=== PATIENT | female | born 1980 | race Caucasian/White ===

== ENCOUNTER → 2016-05-29 | Outpatient (CLI) | payer BC, OTHER ==
[2016-05-29 18:14] LABS: THYROID STIMULATING HORMONE 0.694 uIu/ml (0.300-4.500)
== END | disposition home or self-care (01) ==
LOC: C.LABMFLN 14:05
PROVIDERS: ATTEND Internal Medicine Endocrinology, Diabetes & Metabolism
DX: R53.83 Other fatigue (principal); E06.3 Autoimmune thyroiditis

== ENCOUNTER 2017-10-04 12:27 | Emergency (ER) | payer OTHER ==
[~2017-10-04] VITALS: Ht 165.1 cm; Wt 98.0 kg
[2017-10-04 12:29] VITALS: TEMP 36.7; Ht 165.1 cm; Wt 98.0 kg
--- NOTE | 2017-10-04 12:48 | EMERGENCY ROOM VISIT NOTE ---
History Report prepared by Noahibdarion: Jimena Rae Under the Supervision of: Dr. Ricky Brandt M.D. First contact with patient: 12:30 Chief Complaint: CHEST PAIN Stated Complaint: CHEST PAIN, RADIATING TO RT SIDE History of Present Illness The patient is a 37 year old female who presents to the Emergency Room with complaints of constant chest pain that onset 3 days ago during the evening. She notes that she went out to eat with her children and when she returned, she took vitamin D and biotin supplements. She states that it felt like the pills got stuck in her throat. She notes that when she eats, drinks, or belches there is a stabbing pain in in center of her chest. She states that the area has been constantly aching when she is not swallowing. The patient notes that she called her PCP who referred her to the ED. She notes that the pain radiates into her right side. The patient states that the pain worsens with swallowing. No shortness of breath. Source of History: patient Onset: 3 days ago in the evening Position: chest (center) Quality: ache, stabbing Timing: constant Modifying Factors (Worsening): eating, drinking, other (swallowing) Note: The patient complains of right flank pain. Review of Systems See HPI for pertinent positives and negatives. A total of ten systems were reviewed and were otherwise negative. Family History Patient reports no known family medical history. Social History Smoking Status: Never Smoker Current/Historical Medications Scheduled Liothyronine Sodium (Liothyronine Sodium), 3 TAB PO DAILY Pantoprazole (Protonix), 20 MG PO DAILY Thyroid ([place] Thyroid), 1 TAB PO DAILY Allergies Coded Allergies: No Known Allergies (Unverified , 10/04/17) Physical Exam Vital Signs Date Time Temp Pulse Resp B/P (MAP) Pulse Ox O2 Delivery O2 Flow Rate FiO2 10/04/17 14:50 90 18 121/80 97 10/04/17 12:29 36.7 78 20 143/86 98 Room Air Physical Exam Physical Exam GENERAL: She is oriented to person, place, and time. She appears well- developed and well-nourished. She does not appear distressed. HENT: Exam performed. Head: Normocephalic and atraumatic. Right Ear: External ear normal. No mastoid tenderness. Left Ear: External ear normal. No mastoid tenderness. Mouth/Throat: The oropharynx is clear and moist. No trismus in the jaw. No dental abscesses or uvula swelling. No oropharyngeal exudate or tonsillar abscesses. EYES: Conjunctivae and EOM are normal. Pupils are equal, round, and reactive to light. Right eye exhibits no discharge. Left eye exhibits no discharge. No scleral icterus. NECK: Normal range of motion. Neck supple. No JVD present. No spinous process tenderness present. No carotid bruit present. No rigidity. No tracheal deviation and normal range of motion present. No Brudzinski's sign and no Kernig 's sign noted. CV: Normal rate, regular rhythm, normal heart sounds and intact distal pulses. There is no peripheral edema. Palpable radial pulses bue. PULM/CHEST: Effort normal and breath sounds normal. No respiratory distress. No stridor. She has no wheezes. She has no rales. Chest Wall: She exhibits no tenderness. ABD: The abdomen is soft. Bowel sounds are normal. She has no distension. No mass is present. There is no tenderness. There is no rebound, no guarding, no Marroquin's sign and no tenderness at McBurney's point. Rovsig negative MUSC/SKEL: Normal range of motion. There is no peripheral edema, tenderness or deformity. LYMPH: No cervical adenopathy. NEURO: She is alert and oriented to person, place, and time. She has normal strength. No cranial nerve deficit or sensory deficit. Coordination and gait normal. GCS eye subscore is 4. GCS verbal subscore is 5. GCS motor subscore is 6. Cerebellar tests wnl. SKIN: Skin is warm and dry. She is not diaphoretic. PSYCH: She has a normal mood and affect. Behavior is normal. Judgment and thought content normal. Medical Decision & Procedures ER Provider Diagnostic Interpretation: Radiology results as stated below per my review and radiologist interpretation: CHEST 2 VIEWS ROUTINE CLINICAL HISTORY: Chest pain when swallowing. COMPARISON STUDY: No previous studies for comparison. FINDINGS: The cardiac and mediastinal contours are normal. There is no evidence of focal pulmonary consolidation. There is no evidence of failure. No pleural effusions are visualized.[Incidental note is made of an azygos fissure. No pneumomediastinum is visualized. IMPRESSION: No active disease in the chest. Electronically signed by: Juan Luis Azevedo M.D. 10/04/2017 1:04 PM Dictated Date/Time: 10/04/2017 1:04 PM Medications Administered Medications (Trade) Dose Ordered Sig/Todd Route Start Time Stop Time Status Last Admin Dose Admin Lidocaine HCl (Viscous Lidocaine 2% Soln) 20 ml STK-MED ONCE .ROUTE 10/04/17 13:11 10/04/17 13:12 DC 10/04/17 13:20 20 ML Al Hydroxide/Mg Hydroxide (Maalox Susp) 30 ml STK-MED ONCE .ROUTE 10/04/17 13:12 10/04/17 13:13 DC 10/04/17 13:19 30 ML ECG Per My Interpretation Indication: chest pain Rate (beats per minute): 75 Rhythm: sinus rhythm Findings: 1st degree AV block, other (AK interval 202. QRS and QTC intervats within normal limits. No ST segment elevation or depression. ) ED Course 1233: The patient was evaluated in room C7. A complete history and physical exam was performed. 1307: Ordered Gi Cocktail 24 ml PO. 1400: Vital signs are stable, PE within normal limits, EKG and imaging within normal limits. The patient states that she is feeling better after receiving Gi Cocktail. Patient will be discharged with follow up with GI. She has a scheduled cholecystectomy and endoscopy on . DISCHARGE - Plan of care discussed with patient and questions answered. The patient was given both verbal and printed discharge instructions. The patient verbalized understanding and ability to comply. The patient is to seek outpatient follow up as noted in the discharge instructions. The patient verbalized understanding and ability to comply. The patient is discharged in stable condition. The patient was instructed to return for worsening symptoms. Medical Decision Vital signs are stable, PE within normal limits, EKG and imaging within normal limits. The patient states that she is feeling better after receiving Gi Cocktail. Patient will be discharged with follow up with GI. She has a scheduled cholecystectomy and endoscopy on . DISCHARGE - Plan of care discussed with patient and questions answered. The patient was given both verbal and printed discharge instructions. The patient verbalized understanding and ability to comply. The patient is to seek outpatient follow up as noted in the discharge instructions. The patient verbalized understanding and ability to comply. The patient is discharged in stable condition. The patient was instructed to return for worsening symptoms. Medication Reconcilliation Current Medication List: was personally reviewed by me Blood Pressure Screening Patient's blood pressure: Normal blood pressure Impression Primary Impression: Pill esophagitis Scribe Attestation The scribe's documentation has been prepared under my direction and personally reviewed by me in its entirety. I confirm that the note above accurately reflects all work, treatment, procedures, and medical decision making performed by me. The chart was completed utilizing [employer] voice recognition software. Grammatical errors, random word insertions, pronoun errors, and incomplete sentences are an occasional consequence of this system due to software limitations, ambient noise, and hardware issues. Any formal questions or concerns about the content, text, or information contained within the body of this dictation should be directly addressed to the physician for clarification. Departure Information Dispostion Home / Self-Care Prescriptions Pantoprazole (Protonix) 20 Mg Tab 20 MG PO DAILY, #30 TAB Prov: Ricky Brandt M.D. 10/04/17 Referrals No Doctor, Assigned (PCP) Forms Call Back Authorization, HOME CARE DOCUMENTATION FORM, IMPORTANT VISIT INFORMATION Patient Instructions My [facility] Additional Instructions Follow-up for your regular scheduled endoscopy and colonoscopy with GI Dr. Harrison on . Return to the emergency department if you develop fever greater 100.4, chest pressure, difficulty breathing, vomiting blood, blood in your stool, blood in your urine.
[2017-10-04] MEDS ORDERED: THY/30 PO (12:58)
[2017-10-04] MEDS ORDERED: LIOT5TAB9 PO (12:58)
[2017-10-04] MEDS ORDERED: GI COCKTAIL PO STA (13:06)
--- NOTE | 2017-10-04 13:06 | DIAGNOSTIC IMAGING REPORT ---
CHEST 2 VIEWS ROUTINE CLINICAL HISTORY: Chest pain when swallowing. COMPARISON STUDY: No previous studies for comparison. FINDINGS: The cardiac and mediastinal contours are normal. There is no evidence of focal pulmonary consolidation. There is no evidence of failure. No pleural effusions are visualized.[Incidental note is made of an azygos fissure. No pneumomediastinum is visualized. IMPRESSION: No active disease in the chest. Electronically signed by: Juan Luis Azevedo M.D. 10/04/2017 1:04 PM Dictated Date/Time: 10/04/2017 1:04 PM
[2017-10-04] MEDS ORDERED: LIDOCAINE HCL 2% VISC SOLN 20 ML UDC ONE (13:11)
[2017-10-04] MEDS ORDERED: ALUMINUM/MAGNESIUM SUSP 30 ML UDC ONE (13:12)
[2017-10-04] MEDS ORDERED: PRT/20 PO (13:40)
[2017-10-04 14:50] VITALS: BP 121/80; PULSE 90; O2SAT 97
== END 2017-10-04 14:51 | disposition home or self-care (01) ==
LOC: C.EDB 12:27 → C.EDC 14:51
DX: K20.9 Esophagitis, unspecified (principal)

== ENCOUNTER 2020-05-03 07:13 | Inpatient (IN) ==
[~2020-05-03 07:13] MED LIST: ceFAZolin 2000MG 2,000 MG/15 ML SYR IV SCH
[2020-05-03] MEDS ORDERED: PENICILLIN G POTASSIUM 3 MU in DEXTROSE 5% 100 ML IV PRN (07:51)
--- NOTE | 2020-05-03 08:01 | Labor Progress Brief Note ---
Date of Service May 03, 2020 Subjective Patient presents from home with c/o painful contractions. No LOF, no VB, good FM. Did not call prior to arriving. Arrives as one MD is leaving post-shift and I am arriving, receiving sign out, and was checked by RN before I entered her room. Assessment & Plan (1) GBS (group B Streptococcus carrier), +RV culture, currently : Patient refuses intrapartum antibiotic prophylaxis despite counseling. (2) Gestational diabetes mellitus (GDM) affecting , antepartum: Has been on metformin due to possible adverse reaction to insulin. Will check FSBG now and prn; labor progressing rapidly, role for IV insulin and glucose infusions likely to be very limited. (3) Normal labor and delivery: Patient desires expectant management and no epidural. Admission and Anticipated Discharge Date Admission Date: May 03, 2020 Physical Exam Physical Exam: 3-480/-1 per RN Patient c/o ?leakage after exam. This appears more likely to be lubricant from exam, but she agrees to MD re-exam to check. My exam is 6/100/0 with bulging intact bag. FHT cat 1, though maternal HR is traced frequently as patient sits up and/or stands due to managing her pain via changing positions. This causes the FHT strip to appear to show areas of decreased FHT baseline, however these are clearly r/t maternal positioning based on my observation in her room. [place] not well traced due to frequent maternal repositioning, however clinically based on her pain episodes, appears to be roughly Q3m. Results & Data ([facility]) Vital Signs (Past 12 Hours) Vital Signs Pulse BP 05/03/20 07:20 108 H 131/81 Coding Level of Care Code None Diagnoses GBS (group B Streptococcus carrier), +RV culture, currently O99.820 Gestational diabetes mellitus (GDM) affecting , antepartum O24.419 Normal labor and delivery O80
[2020-05-03] MEDS ORDERED: PENICILLIN G POTASSIUM 6 MU in DEXTROSE 5% 250 ML IV STA (08:04)
[2020-05-03] MEDS ORDERED: LACTATED RINGER'S 1,000 ML IV PRN (08:05)
[2020-05-03 08:10] LABS: Hematocrit (blood only) 40.8 % (37-47); Hemoglobin 14.1 g/dL (12.0-16.0); Mean Corpuscular Hemoglobin 29.6 pg (25-34); Mean Corpuscular Hgb Conc 34.6 g/dL (32-36); Mean Corpuscular Volume 85.5 fL (80-100); Mean Platelet Volume 11.8 fL (7.4-10.4); Platelet Count 184 K/uL (130-400); RDW Coefficient of Variation 14.6 % (11.5-14.5); RDW Standard Deviation 45.5 fL (36.4-46.3); Red Blood Count 4.77 M/uL (4.2-5.4); White Blood Count 8.84 K/uL (4.8-10.8)
[2020-05-03] MEDS ORDERED: SODIUM CHLORIDE 0.9% 250 ML IV PRN (08:51)
[2020-05-03] MEDS ORDERED: ACETAMINOPHEN 325 MG TAB PO ONE (09:46)
[2020-05-03] MEDS ORDERED: ACETAMINOPHEN 325 MG TAB ONE (09:47)
[2020-05-03] MEDS: OXYTOCIN 30 UNITS/500 ML BAG IV PRN ×3 (09:49→14:15)
--- NOTE | 2020-05-03 10:04 | Delivery Summary ---
Vaginal Delivery Summary Date of Service May 03, 2020 Vaginal Delivery Summary DIAGNOSES: 1. Ambrose intrauterine at 37w4d gestation. 2. Spontaneous onset of labor. 3. Group B Streptococcus Positive, patient refuses antibiotic therapy. PROCEDURE: Spontaneous vaginal delivery in squatting postion, without laceration. SURGEON: Justine Crowell MD. ENERGY CONTROL OFFICER: None. ESTIMATED BLOOD LOSS: 250 mL. COMPLICATIONS: None. PLACENTA: Spontaneous and intact with a 3-vessel cord. DISPOSITION: Stable to labor and delivery. DESCRIPTION: The patient initially was unable to push effectively in lithotomy, but requested to move into a more upright position which was facilitated with a squatting bar and nursing support. She pushed well in squatting position and brought the head to in OA position with a single contraction. The infant's head was allowed to deliver with contraction force and no further active pushing, with the perineum protected during this time. The shoulders delivered easily with a maternal pushing effort. There was a tight nuchal cord reduced while the head was at the perineum. The was placed on the maternal abdomen where two nurses provided suction and stimulation as the baby did not immediately make respiratory effort. The patient was advised that the cord was becoming slack and asked for permission to clamp and cut it, which she did not sim. Infant resuscitation proceeded with baby on mom's abdomen for another minute or so before the nurses reiterated their concerns that the baby needed its cord clamped and cut so that further resuscitation could proceed at the warmer. Patient agreed at this time. The cord was doubly clamped by the MD and then cut by the FOB. The went to the warmer and blow-by oxygen was provided without the expected increase in oxygen saturations, so the parents were advised of the recommendation that the be taken to the nursery. The FOB accompanied the and nurse as they departed the delivery room. The placenta delivered spontaneously at nearly 20 minutes post-; note that the patient preferred spontaneous delivery without excessive maneuvers. She also requested to inspect the placenta and was shown the entire placenta with explanations of the findings. Several large segments on the maternal side were hard, white, and rubbery/calcified. I voiced my preference to have the placenta sent for pathology exam given these findings and the patient did agree. The placenta was noted to be intact and with a 3VC. The cervix, vagina and perineum were examined and were found to be without defect requiring repair. The fundus was firm and lochia minimal immediately after delivery. The patient initially refused pitocin drip but after counseling about her risks for hemorrhage she ultimately agreed to pitocin if it was used "at a low dose." We are currently infusing her dilute pitocin at 333cc/hr. [facility] Charge Vaginal Delivery Codes: 44365 global code for the antepartum, delivery, and post-
[2020-05-03] MEDS ORDERED: DIPHTHERIA/TETANUS/PERTUSSIS 0.5 ML SYR/VIAL IM ONE (10:05)
[2020-05-03] MEDS ORDERED: HYDROCORTISONE ACETATE 25 MG SUPP PR PRN (10:05)
[2020-05-03] MEDS ORDERED: SUPERCREAM 0.870% 15 GM JAR EXT PRN (10:05)
[2020-05-03] MEDS ORDERED: BENZOCAINE 20% AER SPR 82.5 GM CAN EXT PRN (10:05)
[2020-05-03] MEDS ORDERED: oxyCODONE/ACETAMINOPHEN 5mg/325mg TAB PO PRN (10:05)
--- NOTE | 2020-05-03 10:11 | History & Physical Report ---
Date of Service May 03, 2020 Assessment & Plan (1) Normal labor and delivery: Justine Banks is a 39yo who arrived with c/o of painful contractions. Admitted for labor. Labor - Per pt preference, underwent expectant management, no epidural - Labor progressed rapidly resulting in - Dilute Pitocin drip per patient request--had initially denied Pitocin drip but then agreed to low dose - Please refer to attending Vaginal Delivery Summary for more details - APAP, ibuprofen, Percocet prn GBS Carrier with +RV culture - Patient refused intrapartum antibiotic ppx despite cousneling GDM - Managed during by [facility] in [place] - On metformin due to possible adverse reaction to insulin - BSG checks prn Diet: Lactose-free, gluten-free Dispo: Admission to L&D CODE STATUS: Full (2) GBS (group B Streptococcus carrier), +RV culture, currently : (3) Gestational diabetes mellitus (GDM) affecting , antepartum: Admission and Anticipated Discharge Date Admission Date: May 03, 2020 History of Present Illness Primary Care Provider: CHANTELL Pastor Justine Banks is a 39 y/o female currently at 37.5 WGA as determined by LMP who arrived with c/o contractions and was found to be in labor. Her was complicated by advanced maternal age and GDM on metformin (managed by [facility]). + contractions; + movement; - fluid loss; - bloody show Had regular appointments with OB. Blood type: B+ Antibody screen: Negative Labs Rubella: Immune VDRL/RPR: Nonreactive Gonorrhea: Negative Chlamydia: Negative HIV: Negative HbSAg: Negative GBS: Positive 04/25/20 COVID-19 negative 05/03/20 Other screens: cff-DNA: Neg (see scanned documents) CF: Neg SMA: Neg Allergies Allergy/AdvReac Type Severity Reaction Status Date / Time insulin glargine Allergy SOB, Verified 05/02/20 11:32 [From Lantus U-100 Insulin] itching with no rash, swelling Wheat Allergy Unknown Uncoded 05/02/20 11:32 Dairy AdvReac Unknown Uncoded 05/02/20 11:32 fluoxetine AdvReac Unknown Uncoded 05/02/20 11:32 Home Medications Medication Instructions Recorded Confirmed Type metformin 500 mg tablet 500 mg PO BID 03/04/20 05/03/20 History chromium 1,000 mcg PO DAILY 05/03/20 05/03/20 History ferrous sulfate 325 mg PO DAILY 05/03/20 05/03/20 History prenat.vits,yeimi,rxu-ccjz-cphag 1 tab PO DAILY 05/03/20 05/03/20 History [ Vitamin] Patient History Medical History (Updated 05/03/20 @ 07:59 by Justine Crowell MD) Abdominal cyst Chronic abdominal pain History of anemia Hypothyroidism Surgical History S/P dilation and curettage S/P tonsillectomy S/P wisdom tooth extraction Family History (Updated 05/23/19 @ 09:11 by Travis Hanley MD) Mother Diabetes Heart disease Hypothyroidism Social History (Updated 03/04/20 @ 13:29 by Tatiana Vaughn) Smoking Status: Never smoker Hx Alcohol Use: No Hx Substance Use: No Preferred Language: Mongolian Communication Ability: Effective Beliefs That Will Affect Care: None marital status: marital status details: Quinn (45) [phone] Current Living Situation: Spouse Current Living Situation Comment: lives with spouse and children, no pets. current occupational status: unemployed current occupation: homemaker. Other Information That Helps Us Care for You: No Feels Safe at Home: Yes Safety Concerns: Feels Safe At This Time Review of Systems Denies fever or chills. Denies shortness of breath or cough Denies chest pain Denies breast pain Denies dysuria or hematuria Denies leg pain or leg swelling Denies headache or changes in vision Physical Exam Physical Exam: General: Alert, oriented. No acute distress. Cardiac: Regular rate and rhythm, no murmurs/rubs/gallops. Respiratory: Clear to auscultation bilaterally a/p, no wheezes/rales/rhonchi. No increased work of breathing. Symmetrical chest rise. No respiratory distress. Abdomen: Gravid. Vertex position. + heart tones. + contractions. EFW 77% (04/25/20) Pelvic: Dilation: 6, Effacement: 100%, Station: 0, per Dr. Crowell External FHT and external uterine monitors used; Category I tracing; variability diffuclt to assess 2/2 maternal repositioning/movement (please see attending Labor progress note). Lower Extremities: No lower extremity edema or swelling. No deep calf pain. Anne-Marie's negative bilaterally. Results & Data ([facility]) Vital Signs (Past 12 Hours) Vital Signs Temp Pulse Resp BP 05/03/20 09:57 70 122/79 05/03/20 09:45 78 131/84 05/03/20 09:15 83 132/95 05/03/20 08:14 64 148/68 H 05/03/20 08:08 62 132/75 05/03/20 08:05 82 93/55 L 05/03/20 07:33 36.5 C 20 05/03/20 07:20 108 H 131/81 Laboratory Results Labs on admission today H.1 Hct: 40.8 WBC: 8.84 Plt: 184 Code Status & VTE Plan VTE Prophylaxis Plan VTE Prophylaxis will be ordered: No Resident Activity Tracking Resident Involvement: Resident Care Provided Care Provided: OB Delivery
[2020-05-03] MEDS: IBUPROFEN 600 MG TAB PO PRN ×2 (11:08→20:29)
[2020-05-03] MEDS ORDERED: DOCUSATE SODIUM 100 MG CAP PO ONE (13:03)
[2020-05-03] MEDS ORDERED: ONDANSETRON INJ 2 MG/ML 2 ML VIAL ONE (14:39)
[2020-05-03] MEDS ORDERED: LIDOCAINE HCL 2% 2 ML VIAL/AMP(20MG/ML) INFIL ONE (14:39)
[2020-05-03] MEDS ORDERED: PROPOFOL IV EMULSION 10 MG/ML 20 ML VIAL IV ONE (14:39)
[2020-05-03] MEDS ORDERED: MIDAZOLAM HCL 1 MG/ML 2ML VIAL ONE (14:42)
[2020-05-03] MEDS ORDERED: fentaNYL citrate 100 MCG/2 ML VIAL ONE (14:42)
[2020-05-03] MEDS ORDERED: METHYLERGONOVINE MALEATE 0.2 MG/ML AMP ONE (14:45)
--- NOTE | 2020-05-03 14:47 | Anesthesiology Consultation ---
Date of Service May 03, 2020 Assessment & Plan (1) Encounter for pre-operative examination: Chart Review Chart Review: Acceptable Risk for Surgery and Patient NOT seen in Pre Admission Testing Consults Requested none ASA [id number] Proposed Anesthesia Anesthesia Type: General Risk / Benefits Reviewed With: PT / POA / Parent / Guardian, Accepts Plan and Informed Consent Obtained History Surgery Operation Date: 05/03/20 10:30 Proposed Procedures p S/P Vaginal Delivery, Exam Under Anesthesia, Dilation and Evacuation - Zay Jarquin MD, FACOG Height/Weight Height: 5 ft 5 in Weight: 106.141 kg Allergies Allergy/AdvReac Type Severity Reaction Status Date / Time insulin glargine Allergy SOB, Verified 05/02/20 11:32 [From Lantus U-100 Insulin] itching with no rash, swelling Wheat Allergy Unknown Uncoded 05/02/20 11:32 Dairy AdvReac Unknown Uncoded 05/02/20 11:32 fluoxetine AdvReac Unknown Uncoded 05/02/20 11:32 Medications Home Medications Medication Instructions Recorded Confirmed Last Taken metformin 500 mg tablet 500 mg PO BID 03/04/20 05/03/20 1 Day Ago ~05/02/20 chromium 1,000 mcg PO DAILY 05/03/20 05/03/20 05/02/20 ferrous sulfate 325 mg PO DAILY 05/03/20 05/03/20 05/02/20 prenat.vits,yeimi,ywy-bjoc-dhinj 1 tab PO DAILY 05/03/20 05/03/20 1 Day Ago [ Vitamin] ~05/02/20 Active Medications Generic Name Dose Route Start Last Admin Trade Name Corinne PRN Reason Stop Dose Admin Oxytocin 30 units in 500 mls @ 333.333 mls/hr 05/03/20 07:51 05/03/20 14:15 Pitocin IV 06/02/20 07:50 59.94 units/hr .Q1H30M PRN 999 mls/hr Bleeding Control Administration Protocol 20 UNITS/HR Lactated Ringer's 1,000 mls @ 125 mls/hr 05/03/20 08:05 05/03/20 10:20 Lr IV 05/05/20 08:04 Infused .Q8H PRN Infusion L&D Protocol Protocol Cefazolin Sodium 2,000 mg in 15 mls @ 3.75 mls/min 05/03/20 06:00 05/03/20 14:46 Ancef 2000mg IV 05/04/20 05:59 3.75 mls/min PREOP PATRICK Administration Ibuprofen 600 mg 05/03/20 10:05 05/03/20 11:08 Ibuprofen 600 Mg Tab PO 06/02/20 10:04 600 mg Q4H PRN Administration Pain/COMER/Cramping/Fever NPO Date Last Intake of Fluids: 05/03/20 Time Last Intake of Fluids: 14:43 Date Last Intake of Solids: 05/03/20 Time Last Intake of Solids: 13:00 Past Medical History Medical History Abdominal cyst Chronic abdominal pain History of anemia Hypothyroidism Exercise / Class Metabolic Activity II 4-5 Yardwork/Stairs/Walk up hill Negative for chest pain or shortness of breath. Past Family History Family History Mother Diabetes Heart disease Hypothyroidism Past Surgical History Surgical History S/P dilation and curettage S/P tonsillectomy S/P wisdom tooth extraction Past Anesthesia History No Hx of Anesthesia Complications History of PONV No Hx of PONV Social History Smoking Status: Never smoker Hx Alcohol Use: No Hx Substance Use: No substance use type: does not use Review of Systems positive for bleeding positive for nausea Physical Exam Vital Signs Last Vital Signs Temp 36.8 C 05/03/20 12:10 Pulse 80 05/03/20 12:10 Resp 20 05/03/20 12:10 BP 145/86 H 05/03/20 12:10 Pulse Ox 97 05/03/20 12:10 Constitutional + obese (immediately post delivery) ENMT Mouth: + small oral opening; no TMJ abnormality Thyromental Distance: < 3.5 Finger Breadths Mallampati Class: III Neck normal visual inspection; neck extension not limited Respiratory normal respiratory effort Auscultation: lungs clear to auscultation bilaterally Cardiovascular Rate/Rhythm: regular rate and regular rhythm Heart Sounds: no murmur Neurologic moves all extremities Psychiatric Orientation: alert and oriented x 3 Testing Laboratory Results 05/03/20 07:58 Blood Type B Positive 05/03/20 07:58 Antibody Screen NEGATIVE 05/03/20 07:58 05/03/20 07:59 POC Glucose 95
[2020-05-03] MEDS ORDERED: LACTATED RINGER'S 1,000 ML IV ONE (15:19)
[2020-05-03 15:27] LABS: Hematocrit (blood only) 33.2 % (37-47); Hemoglobin 11.4 g/dL (12.0-16.0); Mean Corpuscular Hemoglobin 29.8 pg (25-34); Mean Corpuscular Volume 86.7 fL (80-100); Mean Platelet Volume 11.8 fL (7.4-10.4); Platelet Count 166 K/uL (130-400); RDW Coefficient of Variation 14.6 % (11.5-14.5); RDW Standard Deviation 45.5 fL (36.4-46.3); Red Blood Count 3.83 M/uL (4.2-5.4); White Blood Count 12.97 K/uL (4.8-10.8)
[2020-05-03] MEDS ORDERED: SUCCINYLCHOLINE CHLORIDE 20 MG/ML 10 ML VIAL IV ONE (15:29)
[2020-05-03 15:30] LABS: Mean Corpuscular Hgb Conc 34.3 g/dL (32-36)
--- NOTE | 2020-05-03 15:49 | Operative Report ---
PG Post Operative Report Pre & Post Diagnosis Operation Date: 05/03/20 10:30 Pre-Op Diagnosis: Post bleed Post-Op Diagnosis: Post bleed I identified the patient and participated in the time-out.: Yes Procedure Operation Date: 05/03/20 10:30 Actual Procedures p Exam under anesthesia, control of post bleed, repair of cervical lacera daniel - Zay Jarquin MD, FACOG Surgeon Zay Jarquin MD, FACOG Well [employer] Captain Dr. Gonzalez Estimated Blood Loss 150 Findings Consistent with Post-Op Diagnosis Specimens possible clot vs POC Description of Procedure Patient had delivered earlier in the morning spontaneously without difficulty by Dr. Crowell. She was doing well and then when transferred over to the side it was noted that she was starting to pass clots and her bleeding had increased. Brief bedside exam revealed a steady flow of blood from the vagina so she was brought over to the delivery side of the labor and delivery unit as there was better lighting and exposure and exam tables, beds While using an exam table and adequate lighting I was able to visualize no external lacerations. Patient could not tolerate exam of the cervix or manual exam of the uterus. She stated so, so at that stage the exam was stopped and the bleeding continued I recommended at that stage we proceed to the main OR because this was an emergency I did not consent her formally, BUT I explained carefully what was going on specifically that she was having significant bleeding and whether this was a laceration retained products of conception or retained blood clots in the uterus that we would have to take a more thorough look in the operating room discussed risks of this verbally with the patient including risks of infection and damage to internal organs. I explained this to be an examination under anesthesia possible removal of placenta or clots and possible repair of lacerations Patient was taken to the operating room given a general anesthetic prepped and draped in dorsal lithotomy position note we were very careful to position the hips prior to going to sleep as the patient has a hip condition We used yellowfin stirrups for positioning. Bladder was drained with a [place] catheter we did an examination. It should be noted that Ancef was given preoperatively as well bimanual examination and then internal examination of the uterus did reveal significant clots of blood and possibly placenta although more likely blood from within the uterus. The clots were in the lower half of the uterine cavity, these were extracted manually. Uterine tone was actually pretty good at the fundus I was able to get to the top of the fundus and I could not appreciate any further tissue or blood clot in there. Bleeding somewhat improved there it was careful inspection of the cervix was then the performed using sponge sticks to circumferentially walk around the lip of the cervix at 9:00 there was a small laceration approximately 1 to 2 cm that was bleeding this was repaired with an 0 Vicryl on a UR 6 needle in a [id number] fashion. Careful inspection of the rest cervix reavealed ahemostatic state I then injected Hemabate directly into the uterus (vaginally) 0.25 mg at this stage uterine tone improved further I was able to massage the uterus and there was some minimal increase in blood but normal for period. At this stage hemostasis was excellent I decided to leave the Cam[place] in for urine output coag labs and hemoglobin were drawn intraoperatively sponge and instrument counts were correct at the end of the procedure note both Dr. Chowdhury and I reviewed the amount of bleeding and felt that this was very reasonable at the end of the procedure I attest to the content of the Intraoperative Record and any orders documented therein. Any exceptions are noted below. BUILDING SERVICES SUPERVISOR Other Procedure Codes Other 29165 Exam under Anesth
[2020-05-03] MEDS ORDERED: OXYTOCIN 10 UNITS/ML VIAL ONE (15:56)
[2020-05-03 16:07] LABS: Fibrinogen 318 mg/dl (184-400); Partial Thromboplastin Time 26.2 Seconds (21.0-31.0); Prothrombin Time 9.8 Seconds (9.0-12.0)
[2020-05-03] MEDS ORDERED: ATROPINE SULFATE 0.1 MG/ML 10ML SYR IV PRN (16:25)
[2020-05-03] MEDS ORDERED: ePHEDrine sulfate 50 MG/ML AMP IV PRN (16:25)
[2020-05-03] MEDS ORDERED: ACETAMINOPHEN 1000 MG/100 ML IV IV ONE ×2 (16:26)
[2020-05-03] MEDS ORDERED: ACETAMINOPHEN 1,000 MG/100 ML VIAL IV STA (16:28)
--- NOTE | 2020-05-03 16:28 | Anesthesiology Progress Note ---
Date of Service May 03, 2020 Anesthesia Post Procedure Vital Signs Vital Signs: Temp Pulse Pulse Pulse Resp BP BP 05/03/20 16:10 66 13 132/80 05/03/20 16:00 73 20 142/90 H 05/03/20 15:50 74 20 133/90 05/03/20 15:49 36.6 C 79 20 149/91 H 05/03/20 14:46 75 132/87 05/03/20 14:40 84 140/89 05/03/20 12:10 36.8 C 80 20 145/86 H 05/03/20 11:50 36.7 C 20 05/03/20 11:12 18 05/03/20 10:57 85 143/86 H 05/03/20 10:42 75 18 135/81 05/03/20 10:27 18 122/68 05/03/20 10:12 68 18 129/75 05/03/20 09:57 36.5 C 70 20 122/79 05/03/20 09:45 78 131/84 05/03/20 09:20 22 05/03/20 09:15 83 132/95 05/03/20 09:10 20 05/03/20 08:40 18 05/03/20 08:14 64 148/68 H 05/03/20 08:10 20 05/03/20 08:08 62 132/75 05/03/20 08:05 82 93/55 L 05/03/20 07:40 36.5 C 20 05/03/20 07:33 36.5 C 20 05/03/20 07:20 108 H 131/81 Pulse Ox 05/03/20 16:10 98 05/03/20 16:00 99 05/03/20 15:50 99 05/03/20 15:49 98 05/03/20 14:46 05/03/20 14:40 05/03/20 12:10 97 05/03/20 11:50 05/03/20 11:12 05/03/20 10:57 05/03/20 10:42 05/03/20 10:27 05/03/20 10:12 05/03/20 09:57 05/03/20 09:45 05/03/20 09:20 05/03/20 09:15 05/03/20 09:10 05/03/20 08:40 05/03/20 08:14 05/03/20 08:10 05/03/20 08:08 05/03/20 08:05 05/03/20 07:40 05/03/20 07:33 05/03/20 07:20 Pain Intensity Bilateral Lower Abdomen: Pain Intensity: 4 Transfer of Care Handoff Completed per policy Notes Mental Status: alert / awake / arousable and participated in evaluation Patient Amnestic to Procedure: Yes Nausea / Vomiting: adequately controlled Pain: adequately controlled Airway Patency, RR, SpO2: stable & adequate BP & HR: stable & adequate Hydration State: stable & adequate Anesthetic Complications: no major complications apparent and Pt Satisfied with anesthetic care
[2020-05-03] MEDS: DOCUSATE SODIUM 100 MG CAP PO SCH (20:29)
[2020-05-03] MEDS: ACETAMINOPHEN 325 MG TAB PO PRN (23:22)
--- NOTE | 2020-05-04 05:35 | Obstetrical Progress Note ---
Date of Service May 04, 2020 Assessment & Plan (1) Normal labor and delivery: - Had exam under anesthesia for continued vaginal bleeding, which resulted in removal of blood clots and repair of small cervical laceration (view Operative Note for more details) - PNL: Rh pos, RI, GBS pos (refused intrapartum PCN), COVID neg - Feels well today. Eating well, voiding well, ambulating well - Pain well controlled with ibuprofen 600mg Q4H PRN - Routine care -- OOB, ambulation, diet progression as tolerated - After discharge will have 6 week follow-up with Dr. Crowell (2) GBS (group B Streptococcus carrier), +RV culture, currently : Waldemar Fletcher is a 39 y/o female who is PPD #1 following at 37+ weeks. She reports feeling well overall this morning. [_] abdominal cramping and [_]/10 pain well managed on analgesics. Voiding well. Tolerating meals overnight without difficulty. Patient has been able to ambulate some. Is passing gas and [_] bowel movement. Has persistent lochia with some improvement this morning. Currently [] [bottle]. Review of Systems Denies fever or chills. Denies shortness of breath or cough. Denies chest pain. Denies breast pain. Denies dysuria. Denies leg pain or leg swelling. Denies headache or changes in vision. Physical Exam General: Alert, oriented. No acute distress. Cardiac: Regular rate and rhythm. No murmurs. Respiratory: Clear to auscultation bilaterally a/p, no wheezes/rales/rhonchi. No increased work of breathing. Symmetrical chest rise. No respiratory distress. Abdomen: Soft, nontender, nondistended. Bowel sounds present. Uterus: Uterine fundus firm, palpable ~1 cm below umbilicus. Lower Extremities: No lower extremity edema or swelling. No deep calf pain. Anne-Marie's negative bilaterally. Results & Data ([facility]) Vital Signs (Past 12 Hours) Vital Signs Temp Pulse Resp BP Pulse Ox 05/04/20 03:25 36.4 C L 64 18 120/67 97 05/03/20 23:48 36.6 C 64 18 121/77 97 05/03/20 20:45 36.5 C 80 18 129/80 98 05/03/20 18:30 36.6 C 80 20 123/87 98 05/03/20 18:18 36.6 C 20 05/03/20 17:46 59 L 154/73 H 05/03/20 17:40 92 H 97 05/03/20 17:35 68 98
--- NOTE | 2020-05-04 07:36 | Obstetrical Progress Note ---
Date of Service May 04, 2020 Assessment & Plan (1) state: day #1 from vaginal delivery she had a significant hemorrhage which required operative intervention with removal of clot from the uterus and repair of a cervical laceration the patient is having minimal bleeding at this stage she is doing well will encourage ambulation consider discharge tomorrow Subjective Ambulation: ambulating normally Voiding: no voiding problems Passing Gas:: Yes Diet Tolerance:: regular diet Lochia:: Small Current Pain Level(1-10): 1 Physical Exam Extremity exam negative minimal bleeding Results & Data ([facility]) Vital Signs (Past 12 Hours) Vital Signs Temp Pulse Resp BP Pulse Ox 05/04/20 03:25 97.5 F L 64 18 120/67 97 05/03/20 23:48 97.9 F 64 18 121/77 97 05/03/20 20:45 97.7 F 80 18 129/80 98
[2020-05-04 08:07] LABS: Basophils # (auto) 0.02 K/uL (0-0.2); Basophils % (auto) 0.2 %; Eosinophils % (auto) 1.2 %; Hematocrit (blood only) 34.1 % (37-47); Hemoglobin 11.8 g/dL (12.0-16.0); Immature Granulocytes # (auto) 0.01 K/uL (0.00-0.02); Immature Granulocytes % (auto) 0.1 %; Lymphocytes # (auto) 1.25 K/uL (1.2-3.4); Lymphocytes % (auto) 14.9 %; Mean Corpuscular Hemoglobin 30.2 pg (25-34); Mean Corpuscular Hgb Conc 34.6 g/dL (32-36); Mean Corpuscular Volume 87.2 fL (80-100); Mean Platelet Volume 11.5 fL (7.4-10.4); Monocytes # (auto) 0.45 K/uL (0.11-0.59); Monocytes % (auto) 5.4 %; Neutrophils # (auto) 6.56 K/uL (1.4-6.5); Neutrophils % (auto) 78.2 %; Platelet Count 169 K/uL (130-400); RDW Standard Deviation 47.8 fL (36.4-46.3); Red Blood Count 3.91 M/uL (4.2-5.4); White Blood Count 8.39 K/uL (4.8-10.8)
[2020-05-04] MEDS: DOCUSATE SODIUM 100 MG CAP PO SCH ×2 (08:51→21:30)
[2020-05-04] MEDS: IBUPROFEN 600 MG TAB PO PRN ×2 (08:51→15:47)
[2020-05-04] MEDS: PRENATAL VITAMIN 1 TAB PO SCH (08:51)
--- NOTE | 2020-05-04 17:34 | Communication Note ---
Date of Service: May 04, 2020 Visited the patient in room at her request. She had told her nurse, Tatiana KAPOOR, that she was feeling her mood was "a roller coaster," and she was concerned that she would develop depression "on day 3" based on prior experience. She notes she had PPD after her miscarriage and after 1 prior . This manifested as abnormal thoughts, as well as sad mood, and was treated with lexapro. She notes this resulted in 15lb of weight gain and she will not use that medicine again, because of concerns regarding weight gain. She does deny SI/HI at this time. She asked me if I feel that her current emotional responses are "inappropriate" for her current scenario. I reassured her that I think considering her delivery, the hemorrhage with EUA, the diagnosis of Down Syndrome, it is quite appropriate for her to be having mood swings and intermittent tearfulness; there's a lot of stress on her plate at this moment in life, and a lot of hormone shifts associated with the early period even at the best of times. At this moment she is tearful because her other children presented to the hospital with balloons and wanted to visit her, but were turned away as per hospital policy. She was waving to them from her window as they stood in the healing garden below, with tears on her cheeks, when I entered her room. I expressed empathy for what I am sure is a difficult situation. She is a new mom who would probably feel much better if she could have the physical contact and support of her family, but that isn't possible currently with the COVID restrictions in place, and she does confirm that she was aware of that policy. I offered two suggestions: one being to start zoloft without delay, to help ease the ups and downs that she is going through, and to prevent PPD which she is certainly at increased risk for. She does not accept at this time, stating she is not feeling like she has reached a level of mood disturbance where the medication is warranted, she's just voicing a concern that it WILL become necessary later. This is noted, and she was made aware that she can ask at any time if she would be ready to accept treatment. She asks about weight gain and was reminded that all SSRI do have some risk of weight gain. She then said she won't accept any SSRI at any point, if that's the case. Counseled about risk/benefit balance. At this time she isn't wanting any treatment regardless of side effects so I did not push further. I also offered the suggestion that she can be discharged from inpatient status at any time, since she is now >24hr s/p delivery, and move to nesting status. That would allow her to exit the hospital to spend time with her other family members, and return to care for her daughter in the nursery, until such time as peds feels her is ready for discharge. She did not have any enthusiasm for this, saying she wanted to be inpatient for as long as the baby was. Explained that discharge of the infant will be up to peds, but Tatiana KAPOOR gave the input that her last update from nursery showed the baby was still on IV fluids and oxygen, so expectations at this time would likely include at least another day or two for weaning off of therapies before discharge could be considered. This likely means Justine will be moved to nesting status before ba by is discharged, whether that move to nesting occurs today or tomorrow, as she will likely run up against the total approved length of stay for herself prior to the time when her is cleared to go home. She and FOB said they're glad to know about this but don't want to move her out of inpatient status until the typical time tomorrow morning, as they are hopeful the baby will be going home tomorrow too. I reminded them I remain available if they need anything, Tatiana KAPOOR asked if they had any needs at this time that she could help with, and hearing nothing further we could do right now, we both left the patient's room. They are aware I will see her tomorrow on rounds, plan for d/c at that time, and that I'm available if they have further questions beforehand. Of note: I also was called to see the patient earlier this morning, and did not have a chance to document at that time. That visit was also requested by the patient via Connie KAPOOR, and it was to notify me that she was feeling "pelvic pressure" which bothered her. She felt this was similar to the pressure she felt after having had a vaginal hematoma s/p one of her prior deliveries, though perhaps not as intense. I told her I would recommend an exam to r/o hematoma, but she refused any exam at that time. She feels that the pressure is likely related to the EUA she had yesterday, but I advised that we can't know what is causing the pressure without exam - equally or more likely would be prolapse of pelvic organs due to grand multiparity, and normal laxity is also sometimes enough to cause a fair amount of pressure and discomfort. She seemed happy to be heard, and did not allow any exam, saying she would keep me informed if the pressure sensation got worse. I did review with her that her Hgb today *increased* from 11.4 to 11.8, which I think is at least partly spurious given she was taken to the OR for EUA due to PPH yesterday, but it is hard to imagine a very large hematoma forming without a drop in Hgb. Offered to recheck it and she declined that as well.
[2020-05-04] MEDS: ACETAMINOPHEN 325 MG TAB PO PRN (21:31)
--- NOTE | 2020-05-05 08:19 | Obstetrical Progress Note ---
Date of Service May 05, 2020 Assessment & Plan (1) state: Recovering well from vaginal delivery and EUA for PPH with manual evacuation of clot from the uterus plus [id number] suture to cervical laceration. Patient has had no increase in her pelvic pressure sensation from yesterday morning. Was in bed beside her , both wearing jeans and a sweatshirt, when I arrived to see her today; no pelvic exam was possible without having her change back into a gown, and this did not seem warranted as her symptoms have not worsened. She is feeling more comfortable with the pediatric diagnosis, pleased that baby is weaning off oxygen now and optimistic about baby being able to be released from hospital soon. Discussed D/C of mom from inpatient status today and how nesting works. Confirmed she is still not having SI/HI, discussed monitoring mood (and discussed with FOB that he plays an important role in this when they are at home), availability of support at any time she feels it would be helpful, and the expectation of some ongoing [id number] over the first 1-2 weeks especially. Reassured her she is doing a great job handling a tough situation. Right now she appears to be in a very upbeat mood. Discharge instructions briefly reviewed and plan will be for 6wk pp follow up, though she is welcome and encouraged to reach out for assistance at any time it is needed. Subjective Ambulation: ambulating normally Voiding: no voiding problems Diet Tolerance:: regular diet Lochia:: Small Feeding Type:: breast feeding Physical Exam Constitutional WD/WN, vitals as above Eyes PERRL, conjunctivae normal, anicteric sclerae Neck normal visual inspection Respiratory normal respiratory effort and able to speak in complete sentences; no respiratory distress and no labored breathing Cardiovascular Rate/Rhythm: regular rate and regular rhythm Extremities: no edema Chest (Breasts) Chest: normal inspection of chest Gastrointestinal (Abdomen) Inspection/Auscultation: abdomen normal to inspection Soft, postgravid Psychiatric A+Ox3, euthymic affect Genitourinary OB Exam Abdomen: + fundal height Fundus: + firm and + relation to umbilicus (fundus just below umbilicus); not tender Results & Data ([facility]) Vital Signs (Past 12 Hours) Vital Signs Temp Pulse Resp BP Pulse Ox 05/04/20 23:20 97.5 F L 74 16 113/70 98 03/20/21 20:50 97.9 F 67 18 117/76 97
[2020-05-05] MEDS: IBUPROFEN 600 MG TAB PO PRN ×2 (08:49→15:43)
[2020-05-05] MEDS: PRENATAL VITAMIN 1 TAB PO SCH (08:49)
[2020-05-05] MEDS: DOCUSATE SODIUM 100 MG CAP PO SCH (08:49)
[2020-05-05] MEDS: ACETAMINOPHEN 325 MG TAB PO PRN (18:49)
--- NOTE | 2020-05-07 08:06 | Discharge Summary ---
Date of Service May 07, 2020 Admission HPI Per Admitting Provider Justine Banks is a 39 y/o female currently at 37.5 WGA as determined by LMP who arrived with c/o contractions and was found to be in labor. Her was complicated by advanced maternal age and GDM on metformin (managed by Mary Kay Redding). + contractions; + movement; - fluid loss; - bloody show Had regular appointments with OB. Blood type: B+ Antibody screen: Negative Labs Rubella: Immune VDRL/RPR: Nonreactive Gonorrhea: Negative Chlamydia: Negative HIV: Negative HbSAg: Negative GBS: Positive 04/25/20 COVID-19 negative 05/03/20 Other screens: cff-DNA: Neg (see scanned documents) CF: Neg SMA: Neg Discharge Data Consultations 05/03/20 07:51 Consult Anesthesiology Stat Procedures Performed Operation Date: 05/03/20 10:30 Actual Procedures p Exam under anesthesia, control of post bleed, repair of cervical laceration - Zay Jarquin MD, [place] [facility] Course (1) state: Vaginal delivery after spontaneous labor. Unexpected Down Syndrome noted in the infant after . Patient's course was complicated by PPH several hours after delivery, for which she underwent EUA with intrauterine hemabate injection and oversew of a 1cm laceration on the cervix, identified during that exam. She also had questionable mood changes during her course, but these were likely within expected range for the situation she was facing with the new diagnosis in her infant and the stress of experiencing PPH/EUA. She was offered resources but at the time of her discharge had not accepted initiation of SSRI or counseling. Went to nesting status as infant not cleared for discharge at the time of mom's. Planning for short interval follow up due to risk of PPD. Coding Level of Care Code None Diagnoses state Z39.2
== END 2020-05-05 18:57 | disposition home or self-care (01) | DRG 806 ==
LOC: OPB 07:13 → 4S1 07:19 → 4S2 11:30 → 4S1 14:26 → 4S2 18:00